=== PATIENT | female | born 1980 | race Caucasian/White ===

== ENCOUNTER 2018-05-19 23:23 | Emergency (ER) | payer OTHER ==
[~2018-05-19] VITALS: Ht 167.6 cm; Wt 90.7 kg
[~2018-05-19 23:23] MED LIST: AMOXICILLIN 50500 M1 PO; AMOXICILLIN500 M1 PO; AMOXICILLIN875 MG PO; AUGMENTIN 875875 MG PO; BACTRIM DS TAB1 EACH PO; BACTROBAN15 GM TP; CLARITIN10 MG PO; CLEOCIN HCL300 MG PO; CLINDAMYCIN; DIFLUCAN150 MG PO; DOXYCYCLINE 10100 MG PO; FLEXERIL PO; HYDROCODON-ACE1 EAC7 PO; HYDROCODON-ACET15 ML PO; IBUPROFEN 400400 M1 PO; IBUPROFEN 800800 M1 PO; K-DUR 20 MEQ T20 MEQ PO; MOTRIN 600 MG600 M1 OR; NOHOMEMEDICATIONS; NORCO 5-325 TA1 EACH PO; ORAGEL; PENICILLIN V P500 MG PO; PERCOCET 5-3251 EACH PO; PHENERGAN 25 MG25 M1 PO; PHENERGAN 25 MG25 MG PO; ROBAXIN 750 MG750 M1 PO; TESSALON PERLE100 M1 PO; TRAMADOL 50 MG50 MG PO; TRIAMCINOLONE TOP; ULTRAM 50MG TAB50 MG PO; ZOFRAN 4 MG ORAL4 MG PO; ZOLOFT25 MG PO; ZPAK PO
[2018-05-19] MEDS ORDERED: RETIN-A15 GM (23:28)
[2018-05-20] MEDS ORDERED: CYCLOBENZAPRINE10 MG PO (00:10)
[2018-05-20] MEDS ORDERED: IBUPROFEN 800800 MG PO (00:10)
[2018-05-20 00:29] VITALS: BP 108/51
== END 2018-05-20 00:32 | disposition home or self-care (01) ==
LOC: M.ERS 23:23
DX: S16.1XXA Strain of muscle, fascia and tendon at neck level, initial encounter (principal); J45.909 Unspecified asthma, uncomplicated; F17.210 Nicotine dependence, cigarettes, uncomplicated; Z98.890 Other specified postprocedural states; Z88.1 Allergy status to other antibiotic agents; Z88.8 Allergy status to other drugs, medicaments and biological substances; V29.49XA Motorcycle driver injured in collision with other motor vehicles in traffic accident, initial encounter; Y93.89 Activity, other specified; Y92.89 Other specified places as the place of occurrence of the external cause; Y99.8 Other external cause status

== ENCOUNTER 2018-07-29 09:08 | Emergency (ER) | payer OTHER, MEDICAID ==
[~2018-07-29] VITALS: Ht 167.6 cm; Wt 95.3 kg
[~2018-07-29 09:08] MED LIST changes: +CYCLOBENZAPRINE10 MG PO; +IBUPROFEN 800800 MG PO; +RETIN-A15 GM
[2018-07-29 09:18] VITALS: BP 145/106
[2018-07-29] MEDS ORDERED: SEROQUEL 25 MG25 M1 PO (09:21)
[2018-07-29] MEDS ORDERED: KEFLEX500 M1 PO (09:55)
[2018-07-29] MEDS ORDERED: NORCO 5-325 TA1 EACH PO (09:55)
[2018-07-29] MEDS ORDERED: BACTRIM DS TAB1 EACH PO (09:55)
== END 2018-07-29 10:02 | disposition home or self-care (01) ==
LOC: M.ERS 09:08
DX: N61.1 Abscess of the breast and nipple (principal); J45.909 Unspecified asthma, uncomplicated; F41.9 Anxiety disorder, unspecified; F32.9 Major depressive disorder, single episode, unspecified; F17.210 Nicotine dependence, cigarettes, uncomplicated; Z86.14 Personal history of Methicillin resistant Staphylococcus aureus infection; Z98.890 Other specified postprocedural states; Z88.1 Allergy status to other antibiotic agents; Z88.6 Allergy status to analgesic agent; Z88.8 Allergy status to other drugs, medicaments and biological substances

== ENCOUNTER 2018-10-06 19:08 | Emergency (ER) | payer OTHER ==
[~2018-10-06] VITALS: Ht 167.6 cm; Wt 90.7 kg
[~2018-10-06 19:08] MED LIST changes: +KEFLEX500 M1 PO; +SEROQUEL 25 MG25 M1 PO
[2018-10-06] MEDS ORDERED: KEFLEX500 M1 PO (20:02)
[2018-10-06] MEDS ORDERED: CENTANY30 GM TOP (20:02)
[2018-10-06 20:10] VITALS: BP 154/95
== END 2018-10-06 20:11 | disposition home or self-care (01) ==
LOC: M.ERS 19:08
DX: T20.26XA Burn of second degree of forehead and cheek, initial encounter (principal); T20.24XA Burn of second degree of nose (septum), initial encounter; L01.00 Impetigo, unspecified; J45.909 Unspecified asthma, uncomplicated; F41.9 Anxiety disorder, unspecified; F32.9 Major depressive disorder, single episode, unspecified; F17.210 Nicotine dependence, cigarettes, uncomplicated; Z98.890 Other specified postprocedural states; Z86.14 Personal history of Methicillin resistant Staphylococcus aureus infection; Z88.1 Allergy status to other antibiotic agents; Z88.8 Allergy status to other drugs, medicaments and biological substances; X58.XXXA Exposure to other specified factors, initial encounter; Y93.89 Activity, other specified; Y92.89 Other specified places as the place of occurrence of the external cause; Y99.8 Other external cause status

== ENCOUNTER 2020-11-17 02:03 | Emergency (ER) | payer OTHER ==
[~2020-11-17] VITALS: Ht 167.6 cm; Wt 77.1 kg
[~2020-11-17 02:03] MED LIST changes: +CENTANY30 GM TOP
[2020-11-17] MEDS ORDERED: CALCIUM500 MG PO (02:19)
[2020-11-17] MEDS ORDERED: SUPER THERAVIT1 EACH PO (02:19)
[2020-11-17] MEDS ORDERED: BACTRIM DS TAB1 EACH PO (02:40)
[2020-11-17 02:45] VITALS: BP 129/65
== END 2020-11-17 02:45 | disposition home or self-care (01) ==
LOC: M.ERS 02:03
DX: F15.10 Other stimulant abuse, uncomplicated (principal); B95.8 Unspecified staphylococcus as the cause of diseases classified elsewhere; M54.5 Low back pain; J45.909 Unspecified asthma, uncomplicated; F31.9 Bipolar disorder, unspecified; F17.210 Nicotine dependence, cigarettes, uncomplicated; Z98.890 Other specified postprocedural states; Z98.51 Tubal ligation status; Z86.14 Personal history of Methicillin resistant Staphylococcus aureus infection; Z79.899 Other long term (current) drug therapy; Z91.048 Other nonmedicinal substance allergy status; Z88.1 Allergy status to other antibiotic agents